=== PATIENT | male | born 1980 | race Caucasian/White ===

== ENCOUNTER → 2024-07-28 07:05 | Outpatient (CLI) | payer OTHER, MEDICAID, SELFPAY ==
--- NOTE | 2024-07-28 | DI.US.S_ITS ---
PROCEDURE: US EXTREMELY NONVASC UPPER RT INDICATIONS: RIGHT FOREARM LUMP TECHNIQUE: Real-time scanning was performed of the right forearm, with image documentation. COMPARISON: [facility], [place], US EXTREMITY NONVASC UPPER LT, 07/28/2024, 7:14. FINDINGS: At the proximal forearm and ulnar to the ulnar cortex, there is an ill-defined 2.3 x 0.6 x 2.3 cm predominantly isoechoic mass without internal vascularity. The borders are indistinct. IMPRESSION: Indeterminate 2.3 cm subcutaneous mass. While this finding may represent a lipomatous lesion such as a lipoma, please consider confirmation with percutaneous sampling or additional investigation with an MRI of the right wrist pre and postcontrast with an extended field of view . Dictated by: Kyle Gao M.D. on 07/28/2024 at 9:41 Approved by: Kyle Gao M.D. on 07/28/2024 at 9:43
--- NOTE | 2024-07-28 07:08 | DI.US.S_ITS ---
PROCEDURE: US EXTREMITY NONVASC UPPER LT INDICATIONS: LEFT FOREARM LUMP TECHNIQUE: Real-time scanning was performed of the proximal left forearm, with image documentation. COMPARISON: None. FINDINGS: Superficial to the proximal ulnar cortex and likely ulnar in location, there is an ellipsoid 2.8 x 0.5 x 1.9 cm predominantly isoechoic mass without internal vascularity. Within the mass are areas of hypoechogenicity. The borders are indistinct. IMPRESSION: Indeterminate 2.8 cm subcutaneous mass. While this mass may represent a lipomatous lesion such as a lipoma, please consider confirmation with percutaneous sampling or additional investigation with an MRI of the left wrist pre and post-contrast with an extended field of view. Dictated by: Kyle Gao M.D. on 07/28/2024 at 9:36 Approved by: Kyle Gao M.D. on 07/28/2024 at 9:41
== END ==
LOC: US 07:07
PROVIDERS: PCP Family Medicine; Referring Provider Family Medicine; Visit Provider Family Medicine
DX: R22.32 Localized swelling, mass and lump, left upper limb (principal); R22.31 Localized swelling, mass and lump, right upper limb
CPT/HCPCS: 76882

== ENCOUNTER → 2024-12-17 11:37 | Outpatient (CLI) | payer OTHER, SELFPAY ==
--- NOTE | 2024-12-17 12:06 | DI.RAD.S_ITS ---
PROCEDURE: XR CHEST 2V INDICATIONS: cough x 2 weeks, hx RA TECHNIQUE: 2 views of the chest were acquired. COMPARISON: None. FINDINGS: Surgical changes and devices: None. Lungs and pleura: Lungs are clear. No pleural effusions or pneumothorax. Mediastinum: Mediastinal contours are normal. Heart size is normal. Bones and chest wall: No suspicious bony abnormalities. Soft tissues appear unremarkable. IMPRESSION: No acute pulmonary process. Dictated by: Brit Strong M.D. on 12/17/2024 at 21:20 Approved by: Brit Strong M.D. on 12/17/2024 at 21:20
[2024-12-17 12:40] LABS: COVID-19 CEPHEID 4-PLEX PCR Negative (Negative); Influenza A - CEPHEID Flu A NEGATIVE (NEGATIVE); Influenza B - CEPHEID Flu B NEGATIVE (NEGATIVE); Respiratory Syncytial Virus Negative (Negative)
== END ==
PROVIDERS: PCP Family Medicine; Referring Provider Physician Assistant; Visit Provider Physician Assistant
DX: J02.9 Acute pharyngitis, unspecified (principal); J06.9 Acute upper respiratory infection, unspecified
CPT/HCPCS: 87635; 87400 ×2; 87420; 0241U; 71046; 87070; 87880